=== PATIENT | male | born 1960 | race Caucasian/White ===

== ENCOUNTER → 2017-01-10 | Outpatient (CLI) | payer BC ==
--- NOTE | 2017-01-10 11:21 | CR ---
EXAMINATION: Pelvis and right hip HISTORY: Pain COMPARISON: None TECHNIQUE: AP pelvis and 2 views of the right hip FINDINGS: There is severe joint space narrowing within the right hip with subchondral cystic change. Osteophytes are noted along the joint margin. No fracture or acute osseous abnormality demonstrated . Joint spaces within the left hip are grossly preserved. SI joints are symmetric. The iliopectineal lines are intact. IMPRESSION: Moderate to severe degenerative changes noted within the right hip without acute finding s.
== END ==
LOC: MW.CHORTHO 07:43
PROVIDERS: ATTEND Orthopaedic Surgery
DX: M25.551 Pain in right hip (principal)
CPT/HCPCS: 73502-26-RT; 73502-RT

== ENCOUNTER 2017-06-03 16:08 | Emergency (ER) | payer BC ==
[2017-06-03] MEDS ORDERED: HYDROmorphone 1 MG/ML Syringe IV ONE (16:48)
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
[2017-06-03 18:38] VITALS: BP 120/71
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
== END 2017-06-03 18:38 | disposition home or self-care (01) ==
LOC: MW.ED 16:08
DX: M79.661 Pain in right lower leg (principal); M79.671 Pain in right foot; K21.9 Gastro-esophageal reflux disease without esophagitis; F17.210 Nicotine dependence, cigarettes, uncomplicated; Z88.0 Allergy status to penicillin; Z79.82 Long term (current) use of aspirin; Z79.84 Long term (current) use of oral hypoglycemic drugs; Z98.890 Other specified postprocedural states; W22.8XXA Striking against or struck by other objects, initial encounter
CPT/HCPCS: 73562; 73590; 73610; 73620; 96374; 99284; J1170; 99283

== ENCOUNTER 2018-02-28 08:37 | Inpatient (IN) | payer OTHER ==
[~2018-02-28 08:37] MED LIST: Dermabond Prineo 1 Tube TOP ONE; Midazolam 1 MG/ML 2 ML SDV ONE; Propofol 200 MG/20 ML SDV ONE; fentaNYL 100 MCG/2 ML SDV ONE
[2018-02-28] MEDS ORDERED: Clindamycin Phosphate in D5W 900 MG in Premix Bag 1 BAG IV SCH ×2 (10:00)
[2018-02-28] MEDS: Lactated Ringers 1,000 ML IV SCH ×2 (10:05→16:16)
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
[2018-02-28] MEDS ORDERED: Phenylephrine 1% 10 MG/ML SDV ONE (12:45)
[2018-02-28] MEDS ORDERED: fentaNYL 100 MCG/2 ML SDV IVPUSH PRN (12:53)
--- NOTE | 2018-02-28 13:12 | PCM.OPNOTE ---
- General Post-Op/Procedure Note Date of Surgery/Procedure: 02/28/18 Operative Procedure(s): right anterior total hip arthroplasty Findings: osteoarthritis Pre Op Diagnosis: right hip osteoarthritis Post-Op Diagnosis: same Anesthesia Technique: Moderate Sedation, Spinal Primary Surgeon: Travis Durand [employer]: Kika Chaudhary Pathology: femoral head EBL in mLs: 400 Complications: none Condition: Good
[2018-02-28] MEDS ORDERED: diphenhydrAMINE 25 MG Cap PO PRN (13:15)
[2018-02-28] MEDS ORDERED: Aluminum Hydroxide/Magnesium Hydroxide/Simethicone Susp 30 ML Cup PO PRN (13:15)
[2018-02-28] MEDS ORDERED: Ondansetron 4 MG/2 ML SDV IV PRN (13:15)
[2018-02-28] MEDS ORDERED: Bisacodyl 10 MG Supp RECTAL PRN (13:15)
--- NOTE | 2018-02-28 13:41 | PCM.POSTAN ---
POST ANESTHESIA ASSESSMENT - MENTAL STATUS Mental Status: Alert, Oriented - RESPIRATORY Respiratory Status: Respiratory Rate WNL, Airway Patent, O2 Saturation Stable - CARDIOVASCULAR CV Status: Pulse Rate WNL, Blood Pressure Stable - GASTROINTESTINAL GI Status: No Symptoms - POST OP HYDRATION Hydration Status: Adequate & Stable
--- NOTE | 2018-02-28 14:50 | OR ---
SURGEON: Travis Mosher MD DATE OF PROCEDURE: 02/28/2018 CALENDER WIND UP TENDER: Kika Chaudhary PA-C. PREOPERATIVE DIAGNOSIS: Right hip osteoarthritis. POSTOPERATIVE DIAGNOSIS: Right hip osteoarthritis. OPERATION PERFORMED: Right anterior total hip arthroplasty. ANESTHESIA: Spinal with sedation. COMPLICATION: None. ESTIMATED BLOOD LOSS: 4 mL. SPECIMENS: Femoral head. IMPLANTS: Yary Continuum trabecular metal shell with cluster holes, 54 mm outer diameter; one 6.5 x 25 mm length bone screw; Vivacit-E neutral liner 36 mm inner diameter; Fitmore hip stem uncemented; B extended offset, size 1; Biolox delta ceramic femoral head 36 mm diameter; -3.5 neck length. INDICATIONS: The patient is a 57-year-old male with severe arthritis, failed conservative management, modification therapy, injections, chronic pain on a daily basis hindering all activities. He wished undergo above procedure. He understands the risks, benefits, and complications of procedure including, but not limited to, infection, neurovascular injury, continued pain, DVT, PE, stroke, RI, , leg-length discrepancy, fracture dislocation. He wished to proceed. OPERATION IN DETAIL: The patient was seen in preoperative area. Operative site was marked. The patient was transferred to the operating room. Spinal anesthetic was given. He was placed supine on the Olivera table. We started on the Olivera table and sedation was given. His legs were placed in leg bars on the lOivera table with narrow perineal post. Right hip was prepped and draped in a sterile fashion using alcohol followed by ChloraPrep with Ioban covering. He received preoperative antibiotics, clindamycin, and also 2 g of TXA. Formal time-out was taken identifying the correct procedure and extremity. A 10 cm incision starting just lateral to the ASIS going obliquely down femur was made. Dissection was carried down to subcutaneous tissues. The fascia overlying the TFL lateral to the lateral femoral cutaneous nerve was opened. The interval between sartorius and TFL, deep between the abductors and rectus were opened. The anterior vessels were coagulated. The vastus lateralis fascia was opened. A deep Jass tractor was placed. Capsule was held and tagged with two sutures, and the deep retractors were placed. The neck was kept in saddle region, 1 cm above the lesser trochanter and the head was removed. He had severe arthritis. Remnants of the labrum and pulvinar were removed. The inferior capsule was released with the iliopsoas tendon was preserved. The head measured about 48 to 49 mm and sequential reaming from 47 up to 53 mm was made. This had excellent fit and fill going slightly superior medial that was planned to make sure it was leveled, and then a continuum trabecular metal shell with cluster holes was impacted 54 mm and with a screw hole straight superiorly in 40 degrees of abduction and 10 to 15 degrees of anteversion. Once straight superior bone screw was placed after drilling. The neutral liner was impacted in place. The leg was then externally rotated, abducted, and extended. The medial capsule and calcar were released. The superior capsule obturator internus and piriformis were released. Central canal finder was utilized, and hip was broached to starter rasp up to size 1B based on preoperative templating. We would not go down at all. Therefore, a flexible reamer set was opened and it was reamed up to 12 mm in the proximal aspect and then was approached, but between the starter rasp size 1 and 2. I was able to sink the size [address] down to the neck cut, but it was very tight. It was trial reduced with extended offset with zero neck length, which showed the hip to be about 4 mm longer than the opposite side, but the stem fit well. The offset was equal. Hip was then dislocated and the final B1 extended offset stem was impacted. A 36 ceramic head was impacted, and the hip was reduced. Printed overlay technique showed leg lengths to be lengthened to a couple of mm. However, this was a small stem, but also to be equal. There was stable range of motion. Two tag sutures were tied together. Wound was irrigated. The fascia was closed with #1 Vicryl, subcutaneous tissues with 2-0 Stratafix, skin with 4-0 Monocryl. Dermabond tape and Aquacel dressing were placed. He was transferred to recovery room in stable condition. Sponge and needle counts were correct at the end of case. He was given aspirin for DVT prophylaxis. CHRISTIANA / RAKESH /[id number]
[2018-02-28 15:16] LABS: CHLORIDE,CL 105 mmol/L (98-107); SODIUM,NA 141 mmol/L (136-148)
--- NOTE | 2018-02-28 15:52 | PCM.CONS ---
H&P History of Present Illness - General Date of Service: 02/28/18 Admit Problem/Dx: Admission Diagnosis/Problem Admission Diagnosis/Problem Hip replacement planned Source of Information: Patient, Old Records History Limitations: Reports: No Limitations - History of Present Illness Initial Comments - Free Text/Narative: This 57 year old male with pmh CAD, NV in 2014 with stenting to his R coronary artery, DM type 2, tobacco abuse, DVT and PE hx. Presented today with Dr Mosher for R ANISHA. He is feeling well post-operatively. Pre-operatively he was doing well, with no chest pain or dyspnea. No concerns. He continues to smoke 1- ppd, and denies wanting help quitting. Reviewed all notes from PCP, Dr Cabello and cardiology Dr Montanez. He is currently only taking ASA daily for CAD, no statin, which he declines to take. He also takes Losartan/HCTZ, which he reports he only takes a half a tab of this daily otherwise his BPs are too low, SBP 90s. - Related Data Allergies/Adverse Reactions: Allergies Allergy/AdvReac Type Severity Reaction Status Date / Time Penicillins Allergy Rash Verified 02/23/18 12:16 Home Medications: Home Meds Aspirin [Ecotrin] 3 tab PO DAILY 04/30/15 [History] Losartan/Hydrochlorothiazide [Hyzaar 100-25 Tablet] 0.5 tab PO DAILY 11/17/17 [ History] Celecoxib [CeleBREX] 200 mg PO BID 02/23/18 [History] Omeprazole Magnesium [Prilosec Otc] 20 mg PO DAILY 02/23/18 [History] metFORMIN HCl [Metformin HCl] 2 tab PO BID 02/23/18 [History] Past Medical History - Past Health History Medical/Surgical History: Denies Medical/Surgical History HEENT History: Reports: None Cardiovascular History: Reports: Blood Clots/VTE/DVT, CAD, Hypertension, NV, Stents. Denies: Afib Other Cardiovascular History: NV in 2014, denies current chest pain ,SOB, leg swelling- hx of 2 PE in 2009 , took anticoagulants for 6 months, DVT after long flight to [place] Respiratory History: Reports: COPD, PE Gastrointestinal History: Reports: GERD Other Gastrointestinal History: takes OTC prilosec Genitourinary History: Reports: None. Denies: Chronic Renal Insuffiency Musculoskeletal History: Reports: Arthritis, Fracture, Osteoarthritis Other Musculoskeletal History: hx of leona fx arms and legs Neurological History: Reports: Concussion. Denies: CVA, TIA Psychiatric History: Reports: PTSD Endocrine/Metabolic History: Reports: Diabetes, Type II, Obesity/BMI 30+ - Past Surgical History Head Surgeries/Procedures: Reports: None HEENT Surgical History: Reports: Tonsillectomy Cardiovascular Surgical History: Reports: Coronary Artery Stent GI Surgical History: Reports: Hernia, Abdominal, Hernia, Inguinal Male Surgical History: Reports: None Musculoskeletal Surgical History: Reports: Arthroscopic Knee, Carpal Tunnel Other Musculoskeletal Surgeries/Procedures:: hx of left CTR, right ACL (has screws) Social & Family History - Family History Family Medical History: Noncontributory Respiratory: Reports: Other (See Below) Other Respiratory Family Hisory: Black Lung-[place] Endocrine/Metabolic: Reports: Diabetes, type II (mother) - Tobacco Use Smoking Status *Q: Current Every Day Smoker Years of Tobacco use: 42 Packs/Tins Daily: 1 - Alcohol Use Days Per Week of Alcohol Use: 1 Number of Drinks Per Day: 1 Total Drinks Per Week: 1 - Recreational Drug Use Recreational Drug Use: No Drug Use in Last 12 Months: No - Living Situation & Occupation Living situation: Reports: Occupation: Employed H&P Review of Systems - Review of Systems: Review Of Systems: See Below General: Reports: No Symptoms. Denies: Fever, Chills, Malaise, Weakness HEENT: Reports: No Symptoms. Denies: Hearing Changes, Sinus Congestion, Sore Throat Pulmonary: Reports: No Symptoms. Denies: Shortness of Breath, Wheezing, Pleuritic Chest Pain, Cough, Sputum Cardiovascular: Reports: No Symptoms. Denies: Chest Pain, Edema Gastrointestinal: Reports: No Symptoms. Denies: Abdominal Pain, Black Stool, Bloody Stool, Decreased Appetite, Distension, Nausea, Vomiting Genitourinary: Reports: No Symptoms. Denies: Dysuria, Frequency, Burning, Pain Musculoskeletal: Reports: No Symptoms. Denies: Neck Pain Skin: Reports: No Symptoms Psychiatric: Reports: No Symptoms Neurological: Reports: No Symptoms Hematologic/Lymphatic: Reports: No Symptoms Immunologic: Reports: No Symptoms Exam - Exam Exam: See Below - Vital Signs Vital Signs: Last Vital Signs Temp 96.4 F 02/28/18 15:10 Pulse 79 02/28/18 15:10 Resp 18 02/28/18 15:10 BP 125/69 02/28/18 15:10 Pulse Ox 97 02/28/18 15:10 Weight: 118.388 kg - Exam General: Alert, Oriented, Cooperative HEENT: Conjunctiva Clear, Normal Nasal Septum, Posterior Pharynx Clear, Pupils Reactive Neck: Supple, Trachea Midline, 2 Lungs: Clear to Auscultation, Normal Respiratory Effort Cardiovascular: Regular Rate, Regular Rhythm GI/Abdominal Exam: Normal Bowel Sounds, Soft, Non-Tender, No Organomegaly, No Distention, No Abnormal Bruit, No Mass, Pelvis Stable Extremities: Normal Inspection, Normal Range of Motion, Non-Tender, No Pedal Edema, Normal Capillary Refill Skin: Incision (R hip, C/D/I) Neuro Extensive - Mental Status: Alert, Oriented x3 Neuro Extensive - Motor, Sensory, Reflexes: CN II-XII Intact Psychiatric: Alert, Normal Affect, Normal Mood - Patient Data Lab Results Last 24 hrs: Laboratory Results - last 24 hr 02/28/18 02/28/18 02/28/18 Range/Units 09:47 10:21 14:53 WBC 12.24 H (4.0-11.0) K/uL RBC 5.13 (4.50-5.90) M/uL Hgb 15.4 (13.0-17.0) g/dL Hct 44.9 (38.0-50.0) % MCV 87.5 (80.0-98.0) fL MCH 30.0 (27.0-32.0) pg MCHC 34.3 (31.0-37.0) g/dL RDW Std Deviation 42.2 (28.0-62.0) fl RDW Coeff of Lance 13 (11.0-15.0) % Plt Count 137 L (150-400) K/uL MPV 10.70 (7.40-12.00) fL Neut % (Auto) 73.8 (48.0-80.0) % Lymph % (Auto) 21.1 (16.0-40.0) % [place] % (Auto) 3.8 (0.0-15.0) % Eos % (Auto) 1.1 (0.0-7.0) % Baso % (Auto) 0.2 (0.0-1.5) % Neut # (Auto) 9.0 H (1.4-5.7) K/uL Lymph # (Auto) 2.6 H (0.6-2.4) K/uL [place] # (Auto) 0.5 (0.0-0.8) K/uL Eos # (Auto) 0.1 (0.0-0.7) K/uL Baso # (Auto) 0.0 (0.0-0.1) K/uL Nucleated RBC % 0.0 /100WBC Nucleated RBCs # 0 K/uL Sodium (136-148) mmol/L Potassium (3.5-5.1) mmol/L Chloride (98-107) mmol/L Carbon Dioxide (21.0-32.0) mmol/L BUN (7.0-18.0) mg/dL Creatinine (0.8-1.3) mg/dL Est Cr Clr Drug Dosing mL/min Estimated GFR (MDRD) ml/min Glucose (74-106) mg/dL POC Glucose 122 H (60-110) mg/dL Calcium (8.5-10.1) mg/dL Blood Type O POSITIVE Antibody Screen NEGATIVE 02/28/18 Range/Units 14:53 WBC (4.0-11.0) K/uL RBC (4.50-5.90) M/uL Hgb (13.0-17.0) g/dL Hct (38.0-50.0) % MCV (80.0-98.0) fL MCH (27.0-32.0) pg MCHC (31.0-37.0) g/dL RDW Std Deviation (28.0-62.0) fl RDW Coeff of Lance (11.0-15.0) % Plt Count (150-400) K/uL MPV (7.40-12.00) fL Neut % (Auto) (48.0-80.0) % Lymph % (Auto) (16.0-40.0) % [place] % (Auto) (0.0-15.0) % Eos % (Auto) (0.0-7.0) % Baso % (Auto) (0.0-1.5) % Neut # (Auto) (1.4-5.7) K/uL Lymph # (Auto) (0.6-2.4) K/uL [place] # (Auto) (0.0-0.8) K/uL Eos # (Auto) (0.0-0.7) K/uL Baso # (Auto) (0.0-0.1) K/uL Nucleated RBC % /100WBC Nucleated RBCs # K/uL Sodium 141 (136-148) mmol/L Potassium 4.5 (3.5-5.1) mmol/L Chloride 105 (98-107) mmol/L Carbon Dioxide 29.2 (21.0-32.0) mmol/L BUN 16 (7.0-18.0) mg/dL Creatinine 0.8 (0.8-1.3) mg/dL Est Cr Clr Drug Dosing 96.40 mL/min Estimated GFR (MDRD) > 60.0 ml/min Glucose 126 H (74-106) mg/dL POC Glucose (60-110) mg/dL Calcium 8.8 (8.5-10.1) mg/dL Blood Type Antibody Screen Result Diagrams: 02/28/18 14:53 02/28/18 14:53 Consult PN Assessment/Plan Procedures: Procedures ASSAY OF CK (CPK) (12/10/15) ASSAY OF MAGNESIUM (10/17/15) ASSAY OF NATRIURETIC PEPTIDE (12/10/15) ASSAY OF TROPONIN QUANT (12/10/15) CHEST X-RAY 1 VIEW FRONTAL (12/10/15) CHEST X-RAY 2VW FRONTAL&LATL (04/30/15) CO/MEMBANE DIFFUSE CAPACITY (12/21/15) COMPLETE CBC AUTOMATED (12/10/15) COMPLETE CBC W/AUTO DIFF WBC (12/10/15) COMPREHEN METABOLIC PANEL (12/10/15) CREATINE MB FRACTION (12/10/15) DRAIN/INJ JOINT/BURSA W/O US (09/21/17) ELECTROCARDIOGRAM TRACING (12/10/15) EMERGENCY DEPT VISIT (06/03/17) EMERGENCY DEPT VISIT (12/10/15) EMERGENCY DEPT VISIT (04/30/15) EVALUATION OF WHEEZING (12/21/15) EXTREMITY STUDY (06/09/15) FIBRIN DEGRADATION QUANT (04/30/15) GLUCOSE BLOOD TEST (12/10/15) GLYCOSYLATED HEMOGLOBIN TEST (01/16/18) HYDRATE IV INFUSION ADD-ON (10/17/15) NEEDLE LOCALIZATION BY XRAY (09/21/17) PROTHROMBIN TIME (10/17/15) PULM FUNCTION TEST BY GAS (12/21/15) ROUTINE VENIPUNCTURE (01/16/18) THER/PROPH/DIAG INJ IV PUSH (06/03/17) THER/PROPH/DIAG INJ SC/IM (04/30/15) THER/PROPH/DIAG IV INF INIT (10/17/15) TX/PRO/DX INJ NEW DRUG ADDON (10/17/15) URINALYSIS AUTO W/SCOPE (12/10/15) X-RAY EXAM HIP UNI 2-3 VIEWS (01/10/17) X-RAY EXAM OF ANKLE (06/03/17) X-RAY EXAM OF FOOT (06/03/17) X-RAY EXAM OF KNEE 3 (06/03/17) X-RAY EXAM OF LOWER LEG (06/03/17) (1) HTN (hypertension) SNOMED Code(s): 23333243 Code(s): I10 - ESSENTIAL (PRIMARY) HYPERTENSION Current Visit: Yes Qualifiers: Hypertension type: essential hypertension Qualified Code(s): I10 - Essential (primary) hypertension (2) COPD (chronic obstructive pulmonary disease) SNOMED Code(s): 64391503 Code(s): J44.9 - CHRONIC OBSTRUCTIVE PULMONARY DISEASE, UNSPECIFIED Current Visit: Yes Qualifiers: COPD type: unspecified COPD Qualified Code(s): J44.9 - Chronic obstructive pulmonary disease, unspecified (3) Hx of deep venous thrombosis SNOMED Code(s): 550929761 Code(s): Z86.718 - PERSONAL HISTORY OF OTHER VENOUS THROMBOSIS AND EMBOLISM Current Visit: Yes (4) Hx pulmonary embolism SNOMED Code(s): 457806600 Code(s): Z86.711 - PERSONAL HISTORY OF PULMONARY EMBOLISM Current Visit: Yes (5) CAD (coronary artery disease) SNOMED Code(s): 95413443 Code(s): I25.10 - ATHSCL HEART DISEASE OF [place] CORONARY ARTERY W/O ANG PCTRS Current Visit: No Qualifiers: Coronary Disease-Associated Artery/Lesion type: [place] artery [place] vs. transplanted heart: [place] heart Associated angina: without angina Qualified Code(s): I25.10 - Atherosclerotic heart disease of [place] coronary artery without angina pectoris (6) GERD (gastroesophageal reflux disease) SNOMED Code(s): 101081450 Code(s): K21.9 - GASTRO-ESOPHAGEAL REFLUX DISEASE WITHOUT ESOPHAGITIS Current Visit: No Qualifiers: Esophagitis presence: without esophagitis Qualified Code(s): K21.9 - Gastro -esophageal reflux disease without esophagitis (7) Type 2 diabetes mellitus SNOMED Code(s): 55193378 Code(s): E11.9 - TYPE 2 DIABETES MELLITUS WITHOUT COMPLICATIONS Current Visit: No Qualifiers: Diabetes mellitus alf insulin use: without alf use Problem List Initiated/Reviewed/Updated: Yes My Orders Last 24 Hours: My Active Orders 02/28/18 17:00 Insulin Aspart [NovoLOG] See Protocol SUBCUT TIDAC Plan: This 57 year old male admitted with Dr. Mosher for R anterior ANISHA. Hospitalist service consulted for medical management. 1. S/P R anterior ANISHA: Per Ortho 2. CAD: Stable, continue ASA. Patient should be on a statin, but patient declines this. 3. HTN: Stable, continue Losartan/HCTZ. 4. DM type 2: Stable, recent A1c 7.2. Will hold Metformin, but restart upon discharge. Novolog SSI as needed per protocol. Patient reports he may refuse this. He was educated on the need for this and will "see" if/when he needs the insulin. VTE prophylaxis: I would recommended especially with patient's history of PE and DVTs to L leg. Patient adamantly refuses any anticoagulation. Orthopedics has ordered ASA 325 BID.
[2018-02-28] MEDS: Acetaminophen/HYDROcodone 325-5 MG Tab PO PRN ×2 (16:15→19:48)
--- NOTE | 2018-02-28 16:23 | CR ---
EXAMINATION: Right hip HISTORY: Arthroplasty COMPARISON: 09/21/2017 TECHNIQUE: 3 fluoroscopic images provided. FINDINGS/IMPRESSION: Operative control films demonstrate placement of right total hip hardware in goo d position and alignment. Comparative left hip appears normal.
[2018-02-28] MEDS ORDERED: metFORMIN 500 MG Tab PO SCH (17:00)
[2018-02-28] MEDS: Insulin Aspart 100 Units/ML 3 ML Pen SUBCUT SCH (17:10)
[2018-02-28] MEDS: Nicotine 7 MG/24 Hr Patch TRDERM SCH (17:37)
[2018-02-28] MEDS: Morphine 4 MG/ML Syringe IVPUSH PRN ×2 (17:45→21:01)
[2018-02-28] MEDS: Clindamycin Phosphate in D5W 900 MG in Premix Bag 1 BAG IV SCH ×2 (18:34)
[2018-02-28] MEDS: Docusate Sodium 100 MG Cap PO SCH (21:05)
[2018-03-01] MEDS: Acetaminophen/HYDROcodone 325-5 MG Tab PO PRN ×3 (00:33→13:16)
[2018-03-01] MEDS: Clindamycin Phosphate in D5W 900 MG in Premix Bag 1 BAG IV SCH ×2 (02:43)
[2018-03-01] MEDS: Morphine 4 MG/ML Syringe IVPUSH PRN (02:52)
[2018-03-01 05:53] LABS: CHLORIDE,CL 103 mmol/L (98-107); SODIUM,NA 138 mmol/L (136-148)
[2018-03-01] MEDS ORDERED: Sodium Chloride 0.9% 10 ML Syringe FLUSH PRN (07:18)
[2018-03-01] MEDS ORDERED: Sodium Chloride 0.9% 2.5 ML Syringe FLUSH PRN (07:18)
--- NOTE | 2018-03-01 07:18 | PCM.SN ---
- Free Text/Narrative Note: S: doing well, pain is better today. is ambulating with walker. no cp/sob. tolerating PO O: afebrile, vital signs stable right hip - dressing clean/dry/intact with no erythema or drainage no swelling in thigh or distally, normal sensation/motor/pulses distally hgb 13.1 A/P: POD #1 right ANISHA - full weight bearing, PT, walker - SCDs and ecotrin for DVT prophylaxis - likely home later today, f/u in 2 weeks
[2018-03-01] MEDS ORDERED: Omeprazole 20 MG Cap.CR PO SCH (07:30)
--- NOTE | 2018-03-01 07:43 | PCM48HPAN ---
Post Anesthesia Note - EVALUATION WITHIN 48HRS OF ANESTHETIC Vital Signs in Normal Range: Yes Patient Participated in Evaluation: Yes Respiratory Function Stable: Yes Airway Patent: Yes Cardiovascular Function Stable: Yes Hydration Status Stable: Yes Pain Control Satisfactory: No Nausea and Vomiting Control Satisfactory: Yes Mental Status Recovered: Yes Resp Rate: 20 - COMMENTS/OBSERVATIONS Free Text/Narrative:: States he is having pain currently as he is sitting up in chair at side of bed eating breakfast and that he is waiting until he finishes breakfast to get pain medication.
[2018-03-01] MEDS: Insulin Aspart 100 Units/ML 3 ML Pen SUBCUT SCH ×2 (07:48→13:13)
[2018-03-01] MEDS ORDERED: Hydrochlorothiazide/Losartan 12.5-50 mg Tab PO SCH (09:00)
[2018-03-01] MEDS ORDERED: Aspirin 325 MG Tab.EC PO SCH (09:00)
[2018-03-01] MEDS: Docusate Sodium 100 MG Cap PO SCH (09:07)
[2018-03-01] MEDS: Nicotine 7 MG/24 Hr Patch TRDERM SCH (09:11)
--- NOTE | 2018-03-01 10:06 | PCM.CONSN ---
- General Info Date of Service: 03/01/18 Admission Dx/Problem (Free Text): Admission Diagnosis/Problem Admission Diagnosis/Problem Hip replacement planned Subjective Update: Doing ok this morning, No chest pain or SOB. Having R hip pain today. No other concerns. Functional Status: Reports: Pain Controlled, Tolerating Diet, Ambulating, Urinating - Review of Systems HEENT: Reports: No Symptoms. Denies: Headaches, Sore Throat, Visual Changes Pulmonary: Reports: No Symptoms. Denies: Shortness of Breath, Cough, Sputum Cardiovascular: Reports: No Symptoms. Denies: Chest Pain, Edema Gastrointestinal: Reports: No Symptoms. Denies: Abdominal Pain, Nausea, Vomiting Genitourinary: Reports: No Symptoms. Denies: Dysuria, Frequency, Burning, Pain Musculoskeletal: Reports: Joint Pain (R hip) Skin: Reports: No Symptoms Neurological: Reports: No Symptoms Psychiatric: Reports: No Symptoms - Patient Data Vitals - Most Recent: Last Vital Signs Temp 96.3 F 03/01/18 07:49 Pulse 84 03/01/18 07:49 Resp 22 H 03/01/18 07:49 BP 118/64 03/01/18 07:49 Pulse Ox 92 L 03/01/18 07:49 Weight - Most Recent: 118.388 kg I&O - Last 24 Hours: Intake & Output 02/28/18 03/01/18 03/01/18 22:59 06:59 14:59 Intake Total 1000 1523 1040 Output Total 500 2040 396 Balance 500 -517 644 Lab Results Last 24 Hours: Laboratory Results - last 24 hr 02/28/18 02/28/18 02/28/18 Range/Units 10:21 14:53 14:53 WBC 12.24 H (4.0-11.0) K/uL RBC 5.13 (4.50-5.90) M/uL Hgb 15.4 (13.0-17.0) g/dL Hct 44.9 (38.0-50.0) % MCV 87.5 (80.0-98.0) fL MCH 30.0 (27.0-32.0) pg MCHC 34.3 (31.0-37.0) g/dL RDW Std Deviation 42.2 (28.0-62.0) fl RDW Coeff of Lance 13 (11.0-15.0) % Plt Count 137 L (150-400) K/uL MPV 10.70 (7.40-12.00) fL Neut % (Auto) 73.8 (48.0-80.0) % Lymph % (Auto) 21.1 (16.0-40.0) % [place] % (Auto) 3.8 (0.0-15.0) % Eos % (Auto) 1.1 (0.0-7.0) % Baso % (Auto) 0.2 (0.0-1.5) % Neut # (Auto) 9.0 H (1.4-5.7) K/uL Lymph # (Auto) 2.6 H (0.6-2.4) K/uL [place] # (Auto) 0.5 (0.0-0.8) K/uL Eos # (Auto) 0.1 (0.0-0.7) K/uL Baso # (Auto) 0.0 (0.0-0.1) K/uL Nucleated RBC % 0.0 /100WBC Nucleated RBCs # 0 K/uL Sodium 141 (136-148) mmol/L Potassium 4.5 (3.5-5.1) mmol/L Chloride 105 (98-107) mmol/L Carbon Dioxide 29.2 (21.0-32.0) mmol/L BUN 16 (7.0-18.0) mg/dL Creatinine 0.8 (0.8-1.3) mg/dL Est Cr Clr Drug Dosing 96.40 mL/min Estimated GFR (MDRD) > 60.0 ml/min Glucose 126 H (74-106) mg/dL POC Glucose (60-110) mg/dL Calcium 8.8 (8.5-10.1) mg/dL Blood Type O POSITIVE Antibody Screen NEGATIVE 02/28/18 03/01/18 03/01/18 Range/Units 16:52 04:54 04:54 WBC 8.44 (4.0-11.0) K/uL RBC 4.62 (4.50-5.90) M/uL Hgb 13.6 (13.0-17.0) g/dL Hct 39.9 (38.0-50.0) % MCV 86.4 (80.0-98.0) fL MCH 29.4 (27.0-32.0) pg MCHC 34.1 (31.0-37.0) g/dL RDW Std Deviation 41.0 (28.0-62.0) fl RDW Coeff of Lance 13 (11.0-15.0) % Plt Count 136 L (150-400) K/uL MPV 11.30 (7.40-12.00) fL Neut % (Auto) 62.0 (48.0-80.0) % Lymph % (Auto) 30.6 (16.0-40.0) % [place] % (Auto) 6.6 (0.0-15.0) % Eos % (Auto) 0.6 (0.0-7.0) % Baso % (Auto) 0.2 (0.0-1.5) % Neut # (Auto) 5.2 (1.4-5.7) K/uL Lymph # (Auto) 2.6 H (0.6-2.4) K/uL [place] # (Auto) 0.6 (0.0-0.8) K/uL Eos # (Auto) 0.1 (0.0-0.7) K/uL Baso # (Auto) 0.0 (0.0-0.1) K/uL Nucleated RBC % 0.0 /100WBC Nucleated RBCs # 0 K/uL Sodium 138 (136-148) mmol/L Potassium 3.9 (3.5-5.1) mmol/L Chloride 103 (98-107) mmol/L Carbon Dioxide 28.2 (21.0-32.0) mmol/L BUN 11 (7.0-18.0) mg/dL Creatinine 0.8 (0.8-1.3) mg/dL Est Cr Clr Drug Dosing 96.40 mL/min Estimated GFR (MDRD) > 60.0 ml/min Glucose 131 H (74-106) mg/dL POC Glucose 138 H (60-110) mg/dL Calcium 8.3 L (8.5-10.1) mg/dL Blood Type Antibody Screen 03/01/18 Range/Units 06:13 WBC (4.0-11.0) K/uL RBC (4.50-5.90) M/uL Hgb (13.0-17.0) g/dL Hct (38.0-50.0) % MCV (80.0-98.0) fL MCH (27.0-32.0) pg MCHC (31.0-37.0) g/dL RDW Std Deviation (28.0-62.0) fl RDW Coeff of Lance (11.0-15.0) % Plt Count (150-400) K/uL MPV (7.40-12.00) fL Neut % (Auto) (48.0-80.0) % Lymph % (Auto) (16.0-40.0) % [place] % (Auto) (0.0-15.0) % Eos % (Auto) (0.0-7.0) % Baso % (Auto) (0.0-1.5) % Neut # (Auto) (1.4-5.7) K/uL Lymph # (Auto) (0.6-2.4) K/uL [place] # (Auto) (0.0-0.8) K/uL Eos # (Auto) (0.0-0.7) K/uL Baso # (Auto) (0.0-0.1) K/uL Nucleated RBC % /100WBC Nucleated RBCs # K/uL Sodium (136-148) mmol/L Potassium (3.5-5.1) mmol/L Chloride (98-107) mmol/L Carbon Dioxide (21.0-32.0) mmol/L BUN (7.0-18.0) mg/dL Creatinine (0.8-1.3) mg/dL Est Cr Clr Drug Dosing mL/min Estimated GFR (MDRD) ml/min Glucose (74-106) mg/dL POC Glucose 118 H (60-110) mg/dL Calcium (8.5-10.1) mg/dL Blood Type Antibody Screen Med Orders - Current: Current Medications Hydrocodone Bitart/Acetaminophen ([place] 325-5 Mg) 1 - 2 tab PO Q4H PRN PRN Reason: Pain Last Admin: 03/01/18 07:41 Dose: 2 tab Al Hydroxide/Mg Hydroxide (Mag-Al Plus) 30 ml PO Q4H PRN PRN Reason: indigestion Aspirin (Ecotrin) 325 mg PO BID [facility] Last Admin: 03/01/18 09:07 Dose: 325 mg Bisacodyl (Dulcolax) 10 mg RECTAL DAILY PRN PRN Reason: Constipation Diphenhydramine HCl (Benadryl) 25 - 50 mg PO Q6H PRN PRN Reason: Itching Docusate Sodium (Colace) 100 mg PO BID [facility] Last Admin: 03/01/18 09:07 Dose: 100 mg HCTZ/Losartan Potassium (Hyzaar 50-12.5 Mg) 0.5 tab PO DAILY [facility] Last Admin: 03/01/18 09:08 Dose: 0.5 tab Clindamycin Phosphate 900 mg/ (Premix) 50 mls @ 100 mls/hr IV ONETIME [facility] Last Admin: 02/28/18 10:05 Dose: 100 mls/hr Lactated Ringer's (Ringers, Lactated) 1,000 mls @ 125 mls/hr IV ASDIRECTED [facility] Last Admin: 02/28/18 16:16 Dose: 125 mls/hr Insulin Aspart (Novolog) 0 unit SUBCUT TIDAC [facility]; Protocol Last Admin: 03/01/18 07:48 Dose: Not Given Morphine Sulfate (Morphine) 1 - 3 mg IVPUSH Q3H PRN PRN Reason: Pain Last Admin: 03/01/18 02:52 Dose: 3 mg Nicotine (Habitrol) 7 mg TRDERM DAILY [facility] Last Admin: 03/01/18 09:11 Dose: Not Given Omeprazole (Omeprazole) 20 mg PO ACBREAKFAST [facility] Last Admin: 03/01/18 06:52 Dose: 20 mg Ondansetron HCl (Zofran) 4 mg IV Q6HR PRN PRN Reason: NAUSEA/VOMITING Sodium Chloride (Saline Flush) 10 ml FLUSH ASDIRECTED PRN PRN Reason: Keep Vein Open Sodium Chloride (Saline Flush) 2.5 ml FLUSH ASDIRECTED PRN PRN Reason: Keep Vein Open Discontinued Medications Fentanyl (Sublimaze) Confirm Administered Dose 100 mcg .ROUTE .STK-MED ONE Stop: 02/28/18 07:20 Fentanyl (Sublimaze) 50 mcg IVPUSH Q5M PRN PRN Reason: Pain (moderate 4-6) Stop: 02/28/18 15:00 Clindamycin Phosphate 900 mg/ (Premix) 50 mls @ 100 mls/hr IV Q8H [facility] Stop: 03/01/18 03:59 Last Admin: 03/01/18 02:43 Dose: 100 mls/hr Metformin HCl (Glucophage) 500 mg PO BIDMEALS [facility] Midazolam HCl (Versed 1 Mg/Ml) Confirm Administered Dose 2 mg .ROUTE .STK-MED ONE Stop: 02/28/18 07:20 Midazolam HCl (Versed 1 Mg/Ml) Confirm Administered Dose 2 mg .ROUTE .STK-MED ONE Stop: 02/28/18 07:21 Octyl Cyanoacrylate (Dermabond Prineo) 1 applic TOP .STK-MED ONE Stop: 02/28/18 07:35 Phenylephrine HCl (Kurt-Synephrine) Confirm Administered Dose 10 mg .ROUTE .STK- MED ONE Stop: 02/28/18 12:46 Propofol (Diprivan 20 Ml) Confirm Administered Dose 600 mg .ROUTE .STK-MED ONE Stop: 02/28/18 07:20 Tranexamic Acid (Cyklokapron) 2,000 mg IV ONETIME ONE Stop: 02/28/18 10:01 Last Admin: 02/28/18 14:08 Dose: Not Given Tranexamic Acid (Cyklokapron) Confirm Administered Dose 2,000 mg .ROUTE .STK- MED ONE Stop: 02/28/18 07:18 - Exam General: Alert, Oriented, Cooperative, No Acute Distress Neck: Supple Lungs: Clear to Auscultation, Normal Respiratory Effort Cardiovascular: Regular Rate, Regular Rhythm GI/Abdominal Exam: Normal Bowel Sounds, Soft, Non-Tender, No Organomegaly, No Distention, No Abnormal Bruit, No Mass, Pelvis Stable Back Exam: Normal Inspection, Full Range of Motion Extremities: Normal Inspection, Normal Range of Motion, Non-Tender, No Pedal Edema, Normal Capillary Refill Neurological: No New Focal Deficit Psy/Mental Status: Alert, Normal Affect, Normal Mood Consult PN Assessment/Plan Procedures: Procedures ASSAY OF CK (CPK) (12/10/15) ASSAY OF MAGNESIUM (10/17/15) ASSAY OF NATRIURETIC PEPTIDE (12/10/15) ASSAY OF TROPONIN QUANT (12/10/15) CHEST X-RAY 1 VIEW FRONTAL (12/10/15) CHEST X-RAY 2VW FRONTAL&LATL (04/30/15) CO/MEMBANE DIFFUSE CAPACITY (12/21/15) COMPLETE CBC AUTOMATED (12/10/15) COMPLETE CBC W/AUTO DIFF WBC (12/10/15) COMPREHEN METABOLIC PANEL (12/10/15) CREATINE MB FRACTION (12/10/15) DRAIN/INJ JOINT/BURSA W/O US (09/21/17) ELECTROCARDIOGRAM TRACING (12/10/15) EMERGENCY DEPT VISIT (06/03/17) EMERGENCY DEPT VISIT (12/10/15) EMERGENCY DEPT VISIT (04/30/15) EVALUATION OF WHEEZING (12/21/15) EXTREMITY STUDY (06/09/15) FIBRIN DEGRADATION QUANT (04/30/15) GLUCOSE BLOOD TEST (12/10/15) GLYCOSYLATED HEMOGLOBIN TEST (01/16/18) HYDRATE IV INFUSION ADD-ON (10/17/15) NEEDLE LOCALIZATION BY XRAY (09/21/17) PROTHROMBIN TIME (10/17/15) PULM FUNCTION TEST BY GAS (12/21/15) ROUTINE VENIPUNCTURE (01/16/18) THER/PROPH/DIAG INJ IV PUSH (06/03/17) THER/PROPH/DIAG INJ SC/IM (04/30/15) THER/PROPH/DIAG IV INF INIT (10/17/15) TX/PRO/DX INJ NEW DRUG ADDON (10/17/15) URINALYSIS AUTO W/SCOPE (12/10/15) X-RAY EXAM HIP UNI 2-3 VIEWS (01/10/17) X-RAY EXAM OF ANKLE (06/03/17) X-RAY EXAM OF FOOT (06/03/17) X-RAY EXAM OF KNEE 3 (06/03/17) X-RAY EXAM OF LOWER LEG (06/03/17) (1) HTN (hypertension) SNOMED Code(s): 98408595 Code(s): I10 - ESSENTIAL (PRIMARY) HYPERTENSION Current Visit: Yes Qualifiers: Hypertension type: essential hypertension Qualified Code(s): I10 - Essential (primary) hypertension (2) COPD (chronic obstructive pulmonary disease) SNOMED Code(s): 66728954 Code(s): J44.9 - CHRONIC OBSTRUCTIVE PULMONARY DISEASE, UNSPECIFIED Current Visit: Yes Qualifiers: COPD type: unspecified COPD Qualified Code(s): J44.9 - Chronic obstructive pulmonary disease, unspecified (3) Hx of deep venous thrombosis SNOMED Code(s): 643609124 Code(s): Z86.718 - PERSONAL HISTORY OF OTHER VENOUS THROMBOSIS AND EMBOLISM Current Visit: Yes (4) Hx pulmonary embolism SNOMED Code(s): 292121730 Code(s): Z86.711 - PERSONAL HISTORY OF PULMONARY EMBOLISM Current Visit: Yes (5) CAD (coronary artery disease) SNOMED Code(s): 04532663 Code(s): I25.10 - ATHSCL HEART DISEASE OF [place] CORONARY ARTERY W/O ANG PCTRS Current Visit: No Qualifiers: Coronary Disease-Associated Artery/Lesion type: [place] artery [place] vs. transplanted heart: [place] heart Associated angina: without angina Qualified Code(s): I25.10 - Atherosclerotic heart disease of [place] coronary artery without angina pectoris (6) GERD (gastroesophageal reflux disease) SNOMED Code(s): 659525290 Code(s): K21.9 - GASTRO-ESOPHAGEAL REFLUX DISEASE WITHOUT ESOPHAGITIS Current Visit: No Qualifiers: Esophagitis presence: without esophagitis Qualified Code(s): K21.9 - Gastro -esophageal reflux disease without esophagitis (7) Type 2 diabetes mellitus SNOMED Code(s): 26355137 Code(s): E11.9 - TYPE 2 DIABETES MELLITUS WITHOUT COMPLICATIONS Current Visit: No Qualifiers: Diabetes mellitus longterm insulin use: without longterm use Problem List Initiated/Reviewed/Updated: Yes My Orders Last 24 Hours: My Active Orders 02/28/18 17:00 Insulin Aspart [NovoLOG] See Protocol SUBCUT TIDAC Plan: This 57 year old male admitted with Dr. Mosher for R anterior ANISHA. Hospitalist service consulted for medical management. 1. S/P R anterior ANISHA: Per Ortho 2. CAD: Stable, continue ASA. Patient should be on a statin, but patient declines this. 3. HTN: Stable, continue Losartan/HCTZ. 4. DM type 2: Well controlled, not receiving Insulin. BS 110-130. Will hold Metformin, but restart upon discharge. Novolog SSI as needed per protocol. VTE prophylaxis: ASA 325 BID.
[2018-03-01 11:46] VITALS: BP 120/61
--- NOTE | 2018-03-01 14:19 | PCM.DCSUM1 ---
Discharge Summary - Hospital Course Brief History: admitted for elective total hip arthroplasty - Discharge Data Discharge Date: 03/01/18 Discharge Disposition: Home, Self-Care 01 Condition: Good - Patient Summary/Data Operative Procedure(s) Performed: right anterior total hip arthroplasty Consults: Consultations 02/28/18 13:14 Consult to Physician [CONS] Routine PT Evaluation and Treatment [CONS] Routine Hospital Course: admitted after surgery. no issues, PT, discharged to home pod #1 with walker - Patient Instructions Diet: Usual Diet as Tolerated Activity: Apply Ice, As Tolerated, Full Weight Bearing Driving: Do Not Drive Showering/Bathing: May Shower Wound/Incision Care: Keep Operative Site/Wound Site Clean and Dry, Do NOT Change Dressing Notify Provider of: Fever, Swelling and Redness, Drainage - Discharge Plan Home Medications: Home Meds Aspirin [Ecotrin] 3 tab PO DAILY 04/30/15 [History] Losartan/Hydrochlorothiazide [Hyzaar 100-25 Tablet] 0.5 tab PO DAILY 11/17/17 [ History] Celecoxib [CeleBREX] 200 mg PO BID 02/23/18 [History] Omeprazole Magnesium [Prilosec Otc] 20 mg PO DAILY 02/23/18 [History] metFORMIN HCl [Metformin HCl] 2 tab PO BID 02/23/18 [History] Patient Handouts: Acetaminophen; Hydrocodone tablets or capsules, Total Hip Replacement, Care After, Aspirin, ASA oral tablets, Docusate capsules Referrals: Kika Chaudhary PA [[facility]] - 03/09/18 10:45 am - Discharge Summary/Plan Comment DC Time >30 min.: No - Patient Data Vitals - Most Recent: Last Vital Signs Temp 36.5 C 03/01/18 11:45 Pulse 83 03/01/18 11:45 Resp 20 03/01/18 11:45 BP 120/61 03/01/18 11:45 Pulse Ox 97 03/01/18 11:45 Weight - Most Recent: 118.388 kg I&O - Last 24 hours: Intake & Output 02/28/18 03/01/18 03/01/18 22:59 06:59 14:59 Intake Total 1000 1523 2080 Output Total 500 2040 1086 Balance 500 -517 994 Lab Results - Last 24 hrs: Laboratory Results - last 24 hr 02/28/18 02/28/1818 Range/Units 14:53 14:53 16:52 WBC 12.24 H (4.0-11.0) K/uL RBC 5.13 (4.50-5.90) M/uL Hgb 15.4 (13.0-17.0) g/dL Hct 44.9 (38.0-50.0) % MCV 87.5 (80.0-98.0) fL MCH 30.0 (27.0-32.0) pg MCHC 34.3 (31.0-37.0) g/dL RDW Std Deviation 42.2 (28.0-62.0) fl RDW Coeff of Lance 13 (11.0-15.0) % Plt Count 137 L (150-400) K/uL MPV 10.70 (7.40-12.00) fL Neut % (Auto) 73.8 (48.0-80.0) % Lymph % (Auto) 21.1 (16.0-40.0) % [place] % (Auto) 3.8 (0.0-15.0) % Eos % (Auto) 1.1 (0.0-7.0) % Baso % (Auto) 0.2 (0.0-1.5) % Neut # (Auto) 9.0 H (1.4-5.7) K/uL Lymph # (Auto) 2.6 H (0.6-2.4) K/uL [place] # (Auto) 0.5 (0.0-0.8) K/uL Eos # (Auto) 0.1 (0.0-0.7) K/uL Baso # (Auto) 0.0 (0.0-0.1) K/uL Nucleated RBC % 0.0 /100WBC Nucleated RBCs # 0 K/uL Sodium 141 (136-148) mmol/L Potassium 4.5 (3.5-5.1) mmol/L Chloride 105 (98-107) mmol/L Carbon Dioxide 29.2 (21.0-32.0) mmol/L BUN 16 (7.0-18.0) mg/dL Creatinine 0.8 (0.8-1.3) mg/dL Est Cr Clr Drug Dosing 96.40 mL/min Estimated GFR (MDRD) > 60.0 ml/min Glucose 126 H (74-106) mg/dL POC Glucose 138 H (60-110) mg/dL Calcium 8.8 (8.5-10.1) mg/dL 03/01/18 03/01/18 03/01/18 Range/Units 04:54 04:54 06:13 WBC 8.44 (4.0-11.0) K/uL RBC 4.62 (4.50-5.90) M/uL Hgb 13.6 (13.0-17.0) g/dL Hct 39.9 (38.0-50.0) % MCV 86.4 (80.0-98.0) fL MCH 29.4 (27.0-32.0) pg MCHC 34.1 (31.0-37.0) g/dL RDW Std Deviation 41.0 (28.0-62.0) fl RDW Coeff of Lance 13 (11.0-15.0) % Plt Count 136 L (150-400) K/uL MPV 11.30 (7.40-12.00) fL Neut % (Auto) 62.0 (48.0-80.0) % Lymph % (Auto) 30.6 (16.0-40.0) % [place] % (Auto) 6.6 (0.0-15.0) % Eos % (Auto) 0.6 (0.0-7.0) % Baso % (Auto) 0.2 (0.0-1.5) % Neut # (Auto) 5.2 (1.4-5.7) K/uL Lymph # (Auto) 2.6 H (0.6-2.4) K/uL [place] # (Auto) 0.6 (0.0-0.8) K/uL Eos # (Auto) 0.1 (0.0-0.7) K/uL Baso # (Auto) 0.0 (0.0-0.1) K/uL Nucleated RBC % 0.0 /100WBC Nucleated RBCs # 0 K/uL Sodium 138 (136-148) mmol/L Potassium 3.9 (3.5-5.1) mmol/L Chloride 103 (98-107) mmol/L Carbon Dioxide 28.2 (21.0-32.0) mmol/L BUN 11 (7.0-18.0) mg/dL Creatinine 0.8 (0.8-1.3) mg/dL Est Cr Clr Drug Dosing 96.40 mL/min Estimated GFR (MDRD) > 60.0 ml/min Glucose 131 H (74-106) mg/dL POC Glucose 118 H (60-110) mg/dL Calcium 8.3 L (8.5-10.1) mg/dL 03/01/18 Range/Units 11:52 WBC (4.0-11.0) K/uL RBC (4.50-5.90) M/uL Hgb (13.0-17.0) g/dL Hct (38.0-50.0) % MCV (80.0-98.0) fL MCH (27.0-32.0) pg MCHC (31.0-37.0) g/dL RDW Std Deviation (28.0-62.0) fl RDW Coeff of Lance (11.0-15.0) % Plt Count (150-400) K/uL MPV (7.40-12.00) fL Neut % (Auto) (48.0-80.0) % Lymph % (Auto) (16.0-40.0) % [place] % (Auto) (0.0-15.0) % Eos % (Auto) (0.0-7.0) % Baso % (Auto) (0.0-1.5) % Neut # (Auto) (1.4-5.7) K/uL Lymph # (Auto) (0.6-2.4) K/uL [place] # (Auto) (0.0-0.8) K/uL Eos # (Auto) (0.0-0.7) K/uL Baso # (Auto) (0.0-0.1) K/uL Nucleated RBC % /100WBC Nucleated RBCs # K/uL Sodium (136-148) mmol/L Potassium (3.5-5.1) mmol/L Chloride (98-107) mmol/L Carbon Dioxide (21.0-32.0) mmol/L BUN (7.0-18.0) mg/dL Creatinine (0.8-1.3) mg/dL Est Cr Clr Drug Dosing mL/min Estimated GFR (MDRD) ml/min Glucose (74-106) mg/dL POC Glucose 181 H (60-110) mg/dL Calcium (8.5-10.1) mg/dL Med Orders - Current: Current Medications Discontinued Medications Hydrocodone Bitart/Acetaminophen ([place] 325-5 Mg) 1 - 2 tab PO Q4H PRN PRN Reason: Pain Last Admin: 03/01/18 13:16 Dose: 2 tab Al Hydroxide/Mg Hydroxide (Mag-Al Plus) 30 ml PO Q4H PRN PRN Reason: indigestion Aspirin (Ecotrin) 325 mg PO BID [facility] Last Admin: 03/01/18 09:07 Dose: 325 mg Bisacodyl (Dulcolax) 10 mg RECTAL DAILY PRN PRN Reason: Constipation Diphenhydramine HCl (Benadryl) 25 - 50 mg PO Q6H PRN PRN Reason: Itching Docusate Sodium (Colace) 100 mg PO BID [facility] Last Admin: 03/01/18 09:07 Dose: 100 mg Fentanyl (Sublimaze) Confirm Administered Dose 100 mcg .ROUTE .STK-MED ONE Stop: 02/28/18 07:20 Fentanyl (Sublimaze) 50 mcg IVPUSH Q5M PRN PRN Reason: Pain (moderate 4-6) Stop: 02/28/18 15:00 HCTZ/Losartan Potassium (Hyzaar 50-12.5 Mg) 0.5 tab PO DAILY [facility] Last Admin: 03/01/18 09:08 Dose: 0.5 tab Clindamycin Phosphate 900 mg/ (Premix) 50 mls @ 100 mls/hr IV ONETIME [facility] Last Admin: 02/28/18 10:05 Dose: 100 mls/hr Lactated Ringer's (Ringers, Lactated) 1,000 mls @ 125 mls/hr IV ASDIRECTED [facility] Last Admin: 02/28/18 16:16 Dose: 125 mls/hr Clindamycin Phosphate 900 mg/ (Premix) 50 mls @ 100 mls/hr IV Q8H [facility] Stop: 03/01/18 03:59 Last Admin: 03/01/18 02:43 Dose: 100 mls/hr Insulin Aspart (Novolog) 0 unit SUBCUT TIDAC [facility]; Protocol Last Admin: 03/01/18 13:13 Dose: Not Given Metformin HCl (Glucophage) 500 mg PO BIDMEALS [facility] Midazolam HCl (Versed 1 Mg/Ml) Confirm Administered Dose 2 mg .ROUTE .STK-MED ONE Stop: 02/28/18 07:20 Midazolam HCl (Versed 1 Mg/Ml) Confirm Administered Dose 2 mg .ROUTE .STK-MED ONE Stop: 02/28/18 07:21 Morphine Sulfate (Morphine) 1 - 3 mg IVPUSH Q3H PRN PRN Reason: Pain Last Admin: 03/01/18 02:52 Dose: 3 mg Nicotine (Habitrol) 7 mg TRDERM DAILY [facility] Last Admin: 03/01/18 09:11 Dose: Not Given Octyl Cyanoacrylate (Dermabond Prineo) 1 applic TOP .STK-MED ONE Stop: 02/28/18 07:35 Omeprazole (Omeprazole) 20 mg PO ACBREAKFAST [facility] Last Admin: 03/01/18 06:52 Dose: 20 mg Ondansetron HCl (Zofran) 4 mg IV Q6HR PRN PRN Reason: NAUSEA/VOMITING Phenylephrine HCl (Kurt-Synephrine) Confirm Administered Dose 10 mg .ROUTE .STK- MED ONE Stop: 02/28/18 12:46 Propofol (Diprivan 20 Ml) Confirm Administered Dose 600 mg .ROUTE .STK-MED ONE Stop: 02/28/18 07:20 Sodium Chloride (Saline Flush) 10 ml FLUSH ASDIRECTED PRN PRN Reason: Keep Vein Open Sodium Chloride (Saline Flush) 2.5 ml FLUSH ASDIRECTED PRN PRN Reason: Keep Vein Open Tranexamic Acid (Cyklokapron) 2,000 mg IV ONETIME ONE Stop: 02/28/18 10:01 Last Admin: 02/28/18 14:08 Dose: Not Given Tranexamic Acid (Cyklokapron) Confirm Administered Dose 2,000 mg .ROUTE .STK- MED ONE Stop: 02/28/18 07:18
== END 2018-03-01 14:00 | disposition home or self-care (01) | DRG 470 ==
LOC: MW.MS 08:37
PROVIDERS: ADMIT Orthopaedic Surgery; ATTEND Orthopaedic Surgery
PROC: 0SR9019 Replacement of Right Hip Joint with Metal Synthetic Substitute, Cemented, Open Approach (ICD-10-PCS; principal; 2018-02-28)
DX: M16.11 Unilateral primary osteoarthritis, right hip (principal); I25.10 Atherosclerotic heart disease of native coronary artery without angina pectoris; I10 Essential (primary) hypertension; Z95.5 Presence of coronary angioplasty implant and graft; F17.210 Nicotine dependence, cigarettes, uncomplicated; I25.2 Old myocardial infarction; Z86.718 Personal history of other venous thrombosis and embolism; Z86.711 Personal history of pulmonary embolism; E11.9 Type 2 diabetes mellitus without complications; J44.9 Chronic obstructive pulmonary disease, unspecified; K21.9 Gastro-esophageal reflux disease without esophagitis
CPT/HCPCS: 36415; 76000; 76000-26; 80048; 82962; 85025; 86850; 86900; 86901; 97116-GP; 97161-GP; 97530-GP; A9270-GY; C1713; C1769; C1776; J2250; J2270; J2370; J2704; J3010; J7120

== ENCOUNTER 2019-09-02 14:04 | Emergency (ER) | payer OTHER ==
[2019-09-02 14:22] VITALS: BP 136/93; PULSE 100
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
[2019-09-02 15:23] LABS: BLOOD UREA NITROGEN,BUN 17 mg/dL (7.0-18.0); CARBON DIOXIDE,CO2 25.3 mmol/L (21.0-32.0); CHLORIDE,CL 97 mmol/L (98-107); GLUCOSE RANDOM 186 mg/dL (74-106); POTASSIUM,K 3.9 mmol/L (3.5-5.1); SODIUM,NA 135 mmol/L (136-148)
--- NOTE | 2019-09-02 15:31 | US ---
Left lower extremity deep venous ultrasound: Duplex and color Doppler imaging was obtained of the left common femoral, superficial femoral, popliteal, posterior tibial and anterior tibial veins. Findings: Lack of compression with off the popliteal vein is seen which is felt compatible with thrombosis. Other veins show normal phasic flow, augmentation and compression. Impression: Findings which are felt compatible with popliteal DVT. Diagnostic code #5 MTDD
== END 2019-09-02 15:35 | disposition home or self-care (01) ==
LOC: MW.ED 14:04
DX: I82.432 Acute embolism and thrombosis of left popliteal vein (principal); I25.2 Old myocardial infarction; I25.10 Atherosclerotic heart disease of native coronary artery without angina pectoris; I10 Essential (primary) hypertension; E11.9 Type 2 diabetes mellitus without complications; J44.9 Chronic obstructive pulmonary disease, unspecified; K21.9 Gastro-esophageal reflux disease without esophagitis; E66.9 Obesity, unspecified; Z68.41 Body mass index [BMI] 40.0-44.9, adult; Z79.82 Long term (current) use of aspirin; Z79.84 Long term (current) use of oral hypoglycemic drugs; Z79.899 Other long term (current) drug therapy; Z88.0 Allergy status to penicillin; Z95.5 Presence of coronary angioplasty implant and graft
CPT/HCPCS: 36415; 80053; 85025; 85610; 93971-26-LT; 93971-LT; 99284-25

== ENCOUNTER 2020-02-22 19:03 | Emergency (ER) | payer BC, OTHER ==
--- NOTE | 2020-02-22 19:26 | EDM.PDOC ---
ED HPI GENERAL MEDICAL PROBLEM - General Chief Complaint: General Stated Complaint: SWOLLEN FACE Time Seen by Provider: 02/22/20 19:11 Source of Information: Reports: Patient History Limitations: Reports: No Limitations - History of Present Illness INITIAL COMMENTS - FREE TEXT/NARRATIVE: HISTORY AND PHYSICAL: History of present illness: Patient is a 59-year-old male who presents to the emergency room with complaints of left sided jaw pain and soft tissue swelling. Pain with clenching his jaw and chewing. Denies any injury or trauma. Patient denies any fever, chills, headache, change in vision, syncope or near syncope. Denies any chest pain, back pain, shortness of breath or cough. Denies any GI or symptoms. Patient has been eating and drinking appropriately. Review of systems: As per history of present illness and below otherwise all systems reviewed and negative. Past medical history: As per history of present illness and as reviewed below otherwise noncontributory. Surgical history: As per history of present illness and as reviewed below otherwise noncontributory. Social history: See social history for further information Family history: As per history of present illness and as reviewed below otherwise noncontributory. Physical exam: General: Well developed and well nourished 59 year old female. Alert and orientated. Nontoxic appearing and in no acute distress. VSS. HEENT: Atraumatic, normocephalic, pupils equal and reactive bilaterally, negative for conjunctival pallor or scleral icterus, mucous membranes moist, multiple dental cares/decay noted, early dental abscess noted to near number 32- 34. No mass or tenderness along the floor of mouth. No temporal pain nor mastoid pain. TMs normal bilaterally, throat clear, neck supple, nontender, trachea midline. No drooling or trismus noted. No TMJ. No meningeal signs. No hot potato voice noted. Lungs: Clear to auscultation, breath sounds equal bilaterally, chest nontender. Heart: S1S2, regular rate and rhythm without overt murmur Abdomen: Soft, nondistended, nontender. Skin: Intact, warm, dry. No lesions or rashes noted. Extremities: Atraumatic, moves all extremities per self without difficulty or deficits. Neurovascular unremarkable. Neuro: Awake, alert, oriented. Cranial nerves II through XII unremarkable. Cerebellum unremarkable. Motor and sensory unremarkable throughout. Exam nonfocal. Notes: States he can't take NSAIDS due to other medication and has been taking Tylenol without relief. We discussed following up with PCP and dentist. Supportive care measures were reviewed and discussed. Voices understanding and is agreeable to plan of care. Denies any further questions or concerns at this time. Diagnostics: None Therapeutics: Dental balls Prescription: Clindamycin Impression: Dental Abscess Plan: 1. Please take the antibiotic as prescribed. 2. Tylenol and/or ibuprofen as needed for pain management. "Tooth Balls" have been given to you; apply along the gumline every 2-3 hours as needed. Do not swallow these; external use only. 3. Follow-up with a dentist for definitive care. Return to the ED as needed and as discussed. Definitive disposition and diagnosis as appropriate pending reevaluation and review of above. face Pain Score (Numeric/FACES): 7 - Related Data Allergies Allergy/AdvReac Type Severity Reaction Status Date / Time Penicillins Allergy Rash Verified 09/02/19 14:15 Home Meds: Home Meds Aspirin [Ecotrin EC] 3 tab PO DAILY 04/30/15 [History] Losartan/Hydrochlorothiazide [Hyzaar 100-25 Tablet] 0.5 tab PO DAILY 11/17/17 [ History] Omeprazole Magnesium [Prilosec Otc] 20 mg PO DAILY 02/23/18 [History] metFORMIN HCl [Metformin HCl] 4 tab PO BID 02/23/18 [History] Acetaminophen/HYDROcodone [[place] 325-5 MG] 1 tab PO Q4H PRN #10 tablet 02/22/20 [Rx] Clindamycin HCl 300 mg PO TID 7 Days #21 capsule 02/22/20 [Rx] Rivaroxaban [Xarelto] 10 mg PO DAILY 02/22/20 [History] Past Medical History - Past Health History Medical/Surgical History: Denies Medical/Surgical History HEENT History: Reports: None Cardiovascular History: Reports: Blood Clots/VTE/DVT, CAD, Hypertension, [place], Stents Other Cardiovascular History: [place] in 2014, denies current chest pain ,SOB, leg swelling- hx of 2 PE in 2009 , took anticoagulants for 6 months, DVT after long flight to [place] Respiratory History: Reports: COPD, PE Gastrointestinal History: Reports: GERD Other Gastrointestinal History: takes OTC prilosec Genitourinary History: Reports: None Musculoskeletal History: Reports: Arthritis, Fracture, Osteoarthritis Other Musculoskeletal History: hx of leona fx arms and legs Neurological History: Reports: Concussion Psychiatric History: Reports: PTSD Endocrine/Metabolic History: Reports: Diabetes, Type II, Obesity/BMI 30+ Hematologic History: Reports: None Immunologic History: Reports: None Oncologic (Cancer) History: Reports: None Dermatologic History: Reports: None - Infectious Disease History Infectious Disease History: Reports: Chicken Pox, Measles, Mumps - Past Surgical History Head Surgeries/Procedures: Reports: None HEENT Surgical History: Reports: Tonsillectomy Cardiovascular Surgical History: Reports: Coronary Artery Stent GI Surgical History: Reports: Hernia, Abdominal, Hernia, Inguinal Male Surgical History: Reports: None Musculoskeletal Surgical History: Reports: Arthroscopic Knee, Carpal Tunnel Other Musculoskeletal Surgeries/Procedures:: hx of left CTR, right ACL (has screws) Social & Family History - Family History Family Medical History: Noncontributory Respiratory: Reports: Other (See Below) Other Respiratory Family Hisory: Black Lung-[place] Endocrine/Metabolic: Reports: Diabetes, type II - Tobacco Use Smoking Status *Q: Current Every Day Smoker Years of Tobacco use: 40 Packs/Tins Daily: 1 - Caffeine Use Caffeine Use: Reports: Coffee - Recreational Drug Use Recreational Drug Use: No - Living Situation & Occupation Living situation: Reports: Occupation: Employed ED ROS GENERAL - Review of Systems Review Of Systems: Comprehensive ROS is negative, except as noted in HPI. ED EXAM, GENERAL - Physical Exam Exam: See Below (See dictation) Course - Vital Signs Last Recorded V/S: Last Vital Signs Temp 96.9 F 02/22/20 19:13 Pulse 92 02/22/20 19:13 Resp 18 02/22/20 19:13 BP 131/71 02/22/20 19:13 Pulse Ox 96 02/22/20 19:13 - Orders/Labs/Meds Meds: Medications Discontinued Medications Generic Name Dose Route Start Last Admin Trade Name Trevor PRN Reason Stop Dose Admin Benzocaine 2 each 02/22/20 19:20 Hurricaine One 20% MUCMEM 02/22/20 19:21 ONETIME ONE Lidocaine HCl 15 ml 02/22/20 19:20 Xylocaine 2% Viscous PO 02/22/20 19:21 ONETIME ONE Departure - Departure Time of Disposition: 19:25 Disposition: Home, Self-Care 01 Clinical Impression: Dental abscess - Discharge Information Prescriptions: Acetaminophen/HYDROcodone [[place] 325-5 MG] 1 tab PO Q4H PRN #10 tablet PRN Reason: Pain Clindamycin HCl 300 mg PO TID 7 Days #21 capsule Instructions: Dental Abscess, [id number] Referrals: Vinnie Cabello MD [Primary Care Provider] - Forms: ED Department Discharge Additional Instructions: The following information is given to patients seen in the emergency department who are being discharged to home. This information is to outline your options for follow-up care. We provide all patients seen in our emergency department with a follow-up referral. The need for follow-up, as well as the timing and circumstances, are variable depending upon the specifics of your emergency department visit. If you don't have a primary care physician on staff, we will provide you with a referral. We always advise you to contact your personal physician following an emergency department visit to inform them of the circumstance of the visit and for follow-up with them and/or the need for any referrals to a consulting specialist. The emergency department will also refer you to a specialist when appropriate. This referral assures that you have the opportunity for follow-up care with a specialist. All of these measure are taken in an effort to provide you with optimal care, which includes your follow-up. Under all circumstances we always encourage you to contact your private physician who remains a resource for coordinating your care. When calling for follow-up care, please make the office aware that this follow-up is from your recent emergency room visit. If for any reason you are refused follow-up, please contact the [facility] Emergency Department at and asked to speak to the emergency department charge nurse. [facility] [address] [place] [address] [id number] [address] 1. Please take the antibiotic as prescribed. 2. Tylenol and/or ibuprofen as needed for pain management. "Tooth Balls" have been given to you; apply along the gumline every 2-3 hours as needed. Do not swallow these; external use only. 3. Follow-up with a dentist for definitive care. Return to the ED as needed and as discussed. Sepsis Event Note - Evaluation Sepsis Screening Result: No Definite Risk - Focused Exam Vital Signs: Vital Signs Temp Pulse Resp BP Pulse Ox 02/22/20 19:13 96.9 F 92 18 131/71 96 Date Exam was Performed: 02/22/20 Time Exam was Performed: 19:29
[2020-02-22] MEDS: Lidocaine 2% Viscous Solution 15 ML Cup PO ONE (19:32)
[2020-02-22] MEDS: Benzocaine 20% Topical Spray UD MUCMEM ONE (19:32)
[2020-02-22 19:37] VITALS: BP 119/71; PULSE 71
== END 2020-02-22 19:40 | disposition home or self-care (01) ==
LOC: MW.ED 19:03
DX: K04.7 Periapical abscess without sinus (principal); I25.10 Atherosclerotic heart disease of native coronary artery without angina pectoris; I10 Essential (primary) hypertension; I25.2 Old myocardial infarction; J44.9 Chronic obstructive pulmonary disease, unspecified; E11.9 Type 2 diabetes mellitus without complications; K21.9 Gastro-esophageal reflux disease without esophagitis; F17.210 Nicotine dependence, cigarettes, uncomplicated; M19.90 Unspecified osteoarthritis, unspecified site; E66.9 Obesity, unspecified; Z68.37 Body mass index [BMI] 37.0-37.9, adult; Z88.0 Allergy status to penicillin; Z79.82 Long term (current) use of aspirin; Z79.01 Long term (current) use of anticoagulants; Z79.84 Long term (current) use of oral hypoglycemic drugs; Z86.711 Personal history of pulmonary embolism; Z79.899 Other long term (current) drug therapy
CPT/HCPCS: 99283; A9270

== ENCOUNTER 2021-10-22 07:19 | Day surgery (SDC) | payer BC, OTHER ==
[~2021-10-22 07:19] MED LIST changes: -Dermabond Prineo 1 Tube TOP ONE; -fentaNYL 100 MCG/2 ML SDV ONE
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
[2021-10-22] MEDS ORDERED: Lactated Ringers 1,000 ML IV SCH ×2 (08:15→09:30)
--- NOTE | 2021-10-22 09:28 | PCM.POSTAN ---
POST ANESTHESIA ASSESSMENT - MENTAL STATUS Mental Status: Alert, Oriented - VITAL SIGNS Vital Signs: Last Vital Signs Temp 99.0 F 10/22/21 09:24 Pulse 84 10/22/21 09:24 Resp 16 10/22/21 09:24 BP 100/72 10/22/21 09:24 Pulse Ox 96 10/22/21 09:24 - RESPIRATORY Respiratory Status: Respiratory Rate WNL, Airway Patent, O2 Saturation Stable - CARDIOVASCULAR CV Status: Pulse Rate WNL, Blood Pressure Stable - GASTROINTESTINAL GI Status: No Symptoms - PAIN Pain Score: 0 - POST OP HYDRATION Hydration Status: Adequate & Stable
--- NOTE | 2021-10-22 09:28 | PCM.OPNOTE ---
- General Post-Op/Procedure Note Date of Surgery/Procedure: 10/22/21 Operative Procedure(s): Colonoscopy with cold ascending colon, transverse colon and rectal polypectomies Pre Op Diagnosis: Rectal bleeding Post-Op Diagnosis: Ascending colon, transverse colon and rectal polyps Anesthesia Technique: MAC (ASA III) Primary Surgeon: Dwayne Toney Fluid Replacement, Intraop: 600 Condition: Good Free Text/Narrative:: DICTATION [id number] CPT CODE 08315
--- NOTE | 2021-10-22 09:34 | PCM48HPAN ---
Post Anesthesia Note - EVALUATION WITHIN 48HRS OF ANESTHETIC Vital Signs in Normal Range: Yes Patient Participated in Evaluation: Yes Respiratory Function Stable: Yes Airway Patent: Yes Cardiovascular Function Stable: Yes Hydration Status Stable: Yes Pain Control Satisfactory: Yes Nausea and Vomiting Control Satisfactory: Yes Mental Status Recovered: Yes Vital Signs: Last Vital Signs Temp 99.0 F 10/22/21 09:24 Pulse 72 10/22/21 09:29 Resp 17 10/22/21 09:29 BP 108/61 10/22/21 09:29 Pulse Ox 98 10/22/21 09:29 - COMMENTS/OBSERVATIONS Free Text/Narrative:: Pt doing well post-op. VSS. No apparent anesthetic complications. Dr. Esteban Pascal
[2021-10-22 10:18] VITALS: BP 106/70; PULSE 79
--- NOTE | 2021-10-22 13:17 | OR ---
SURGEON: Dwayne Toney M.D. DATE OF PROCEDURE: 10/22/2021 OPERATION PERFORMED: Colonoscopy with multiple cold polypectomies from the ascending colon, transverse colon, and rectum. PRIMARY SURGEON: Dwayne Toney M.D. ANESTHESIA: MAC. ASA CLASSIFICATION: III. PREOPERATIVE DIAGNOSIS: Rectal bleeding. POSTOPERATIVE DIAGNOSES: 1. Ascending colon polyp. 2. Transverse colon polyp. 3. Rectal polyp. DESCRIPTION OF PROCEDURE: The patient was taken to the endoscopy room and positioned on the endoscopy table in the left lateral decubitus position. Time-out was called for appropriate identification of the patient and procedure. Monitored anesthesia care was provided. The colonoscope was inserted into the rectum and advanced with minimal difficulty to the cecum. The cecum was identified by internal landmarks and external pressure. The colonoscope was retroflexed to visualize the ascending colon from below and then straightened and slowly withdrawn. The patient did have a polyp in his proximal ascending colon and this was removed with multiple bites of the cold biopsy forceps. A second polyp was encountered in the distal transverse colon and again removed with multiple bites of the cold biopsy forceps. A third polyp that was much smaller in nature was also encountered in the rectum and this was removed again with a cold biopsy forceps. The prep was fair, although there was a moderate amount of mucousy material. No tumors or diverticular changes were noted anywhere in the lower gastrointestinal tract which was well visualized from the cecum all the way to the rectum. No angiodysplastic changes or inflammatory changes were noted. Once the colonoscope was withdrawn to the rectum, it was retroflexed to visualize the anal orifice from above. Again, no tumors or other polyps were encountered and there were no acute hemorrhoidal changes. The colonoscope was then straightened, the rectum aspirated, and the colonoscope removed. The patient tolerated the procedure well and was taken to recovery room in stable condition. TERESA / RAKESH /[id number]
== END 2021-10-22 10:00 | disposition home or self-care (01) ==
LOC: MW.SDS 07:19
PROVIDERS: ATTEND Surgery
DX: D12.2 Benign neoplasm of ascending colon (principal); D12.3 Benign neoplasm of transverse colon; K62.1 Rectal polyp; I10 Essential (primary) hypertension; E11.9 Type 2 diabetes mellitus without complications; M77.10 Lateral epicondylitis, unspecified elbow; M77.00 Medial epicondylitis, unspecified elbow; F17.210 Nicotine dependence, cigarettes, uncomplicated; E66.01 Morbid (severe) obesity due to excess calories; J44.9 Chronic obstructive pulmonary disease, unspecified; I25.10 Atherosclerotic heart disease of native coronary artery without angina pectoris; K21.9 Gastro-esophageal reflux disease without esophagitis; Z88.0 Allergy status to penicillin; Z79.82 Long term (current) use of aspirin; Z79.01 Long term (current) use of anticoagulants; Z79.899 Other long term (current) drug therapy; Z98.890 Other specified postprocedural states; Z68.41 Body mass index [BMI] 40.0-44.9, adult
CPT/HCPCS: 45380; 82947; J2250; J2704; J7120; 00812

== ENCOUNTER 2022-07-24 08:21 | Emergency (ER) | payer OTHER ==
[2022-07-24] MEDS ORDERED: Sodium Chloride 0.9% 1,000 ML IV ONE (08:32)
[2022-07-24 09:08] LABS: CARBON DIOXIDE,CO2 27.7 mmol/L (21.0-32.0); POTASSIUM,K 4.3 mmol/L (3.5-5.1)
[2022-07-24] MEDS ORDERED: Iopamidol 755 Mg/ML 100 ML Bottle IVPUSH ONE (10:30)
[2022-07-24 14:24] VITALS: BP 138/78; PULSE 82
== END 2022-07-24 14:40 | disposition home or self-care (01) ==
LOC: MW.ED 08:21
DX: I21.4 Non-ST elevation (NSTEMI) myocardial infarction (principal); I10 Essential (primary) hypertension; E78.00 Pure hypercholesterolemia, unspecified; K21.9 Gastro-esophageal reflux disease without esophagitis; E11.9 Type 2 diabetes mellitus without complications; E66.9 Obesity, unspecified; Z68.34 Body mass index [BMI] 34.0-34.9, adult; Z79.82 Long term (current) use of aspirin; Z79.899 Other long term (current) drug therapy; Z20.822 Contact with and (suspected) exposure to COVID-19
CPT/HCPCS: 36415; 71275; 74175; 80053; 82947; 83880; 84484; 85025; 85610; 85730; 86850; 86900; 86901; 87635; 93005; 96360; 99285; J7030; Q9967; U0002

== ENCOUNTER 2022-08-11 08:48 | Emergency (ER) | payer OTHER ==
[2022-08-11] MEDS ORDERED: Sodium Chloride 0.9% 2.5 ML Syringe FLUSH PRN (09:09)
[2022-08-11] MEDS ORDERED: Sodium Chloride 0.9% 10 ML Syringe FLUSH PRN (09:09)
[2022-08-11] MEDS ORDERED: Nitroglycerin 0.4 MG Tab.SL SL PRN (09:09)
[2022-08-11 10:22] LABS: CARBON DIOXIDE,CO2 28.8 mmol/L (21.0-32.0); POTASSIUM,K 4.1 mmol/L (3.5-5.1)
[2022-08-11] MEDS ORDERED: Heparin Sodium 5,000 Units/ML Vial IVPUSH ONE (11:00)
[2022-08-11] MEDS ORDERED: Heparin Sodium/0.45% NaCl 500 ML IV SCH (11:00)
[2022-08-11] MEDS ORDERED: Ondansetron 4 MG/2 ML SDV IVPUSH ONE (11:19)
[2022-08-11] MEDS ORDERED: HYDROmorphone 1 MG/ML Syringe IVPUSH ONE (11:19)
[2022-08-11] MEDS ORDERED: Nitroglycerin/D5W 25 MG/250 ML BOTTLE IV SCH (11:30)
[2022-08-11 12:18] VITALS: BP 109/80; PULSE 91
== END 2022-08-11 11:55 ==
LOC: MW.ED 08:48
DX: I21.4 Non-ST elevation (NSTEMI) myocardial infarction (principal); I10 Essential (primary) hypertension; K85.90 Acute pancreatitis without necrosis or infection, unspecified; J44.9 Chronic obstructive pulmonary disease, unspecified; K21.9 Gastro-esophageal reflux disease without esophagitis; E11.9 Type 2 diabetes mellitus without complications; Z79.899 Other long term (current) drug therapy; Z20.822 Contact with and (suspected) exposure to COVID-19
CPT/HCPCS: 36415; 71045; 80053; 83690; 83735; 84484; 85025; 85379; 85610; 85730; 87635; 93005; 96365; 96368; 96375; 96376; 99285; A9270; J1170; J1644; J2405; J3490; U0002

== ENCOUNTER 2022-09-27 09:04 | Emergency (ER) | payer OTHER ==
[2022-09-27] MEDS ORDERED: Sodium Chloride 0.9% 1,000 ML IV SCH (12:15)
[2022-09-27] MEDS ORDERED: Nicotine 21 MG/24 Hr Patch TRDERM ONE (12:26)
[2022-09-27] MEDS ORDERED: Heparin Sodium/0.45% NaCl 500 ML IV STA (12:30)
[2022-09-27] MEDS ORDERED: Heparin Sodium 5,000 Units/ML Vial IVPUSH ONE (12:32)
[2022-09-27 13:19] VITALS: BP 105/69; PULSE 91
[2022-09-27 13:29] LABS: CARBON DIOXIDE,CO2 27.5 mmol/L (21.0-32.0)
== END 2022-09-27 13:58 ==
LOC: MW.ED 09:04
DX: I21.4 Non-ST elevation (NSTEMI) myocardial infarction (principal); I25.10 Atherosclerotic heart disease of native coronary artery without angina pectoris; I10 Essential (primary) hypertension; I25.2 Old myocardial infarction; E11.9 Type 2 diabetes mellitus without complications; E66.9 Obesity, unspecified; Z68.37 Body mass index [BMI] 37.0-37.9, adult; Z88.0 Allergy status to penicillin; Z79.899 Other long term (current) drug therapy; Z79.82 Long term (current) use of aspirin; Z79.84 Long term (current) use of oral hypoglycemic drugs
CPT/HCPCS: 36415; 71045; 80053; 84484; 85025; 85610; 85730; 93005; 96365; 96376; 99285; A9270; J1644; J7030

== ENCOUNTER 2022-10-05 05:52 | Emergency (ER) | payer OTHER ==
[2022-10-05 06:14] VITALS: BP 112/63; PULSE 84
== END 2022-10-05 06:28 | disposition home or self-care (01) ==
LOC: MW.ED 05:52
DX: U07.1 COVID-19 (principal); J44.9 Chronic obstructive pulmonary disease, unspecified; I25.10 Atherosclerotic heart disease of native coronary artery without angina pectoris; I10 Essential (primary) hypertension; I25.2 Old myocardial infarction; E11.9 Type 2 diabetes mellitus without complications; E66.9 Obesity, unspecified; Z68.37 Body mass index [BMI] 37.0-37.9, adult; Z95.5 Presence of coronary angioplasty implant and graft; Z88.0 Allergy status to penicillin; Z79.82 Long term (current) use of aspirin; Z79.01 Long term (current) use of anticoagulants; Z79.899 Other long term (current) drug therapy
CPT/HCPCS: 99283

== ENCOUNTER 2023-01-31 09:05 | Emergency (ER) | payer OTHER ==
[2023-01-31] MEDS ORDERED: Aspirin 81 MG Tab.Chew PO ONE (09:20)
[2023-01-31] MEDS ORDERED: Sodium Chloride 0.9% 500 ML IV ONE ×2 (09:32→12:48)
[2023-01-31 10:15] LABS: CARBON DIOXIDE,CO2 26.6 mmol/L (21.0-32.0)
[2023-01-31] MEDS ORDERED: Potassium Chloride 20 MEQ Tab.ER PO ONE (10:32)
[2023-01-31] MEDS ORDERED: Heparin Sodium 5,000 Units/ML Vial IVPUSH ONE (10:47)
[2023-01-31] MEDS ORDERED: Heparin Sodium/0.45% NaCl 500 ML IV SCH (11:00)
[2023-01-31 12:55] VITALS: PULSE 75
[2023-01-31 14:15] VITALS: BP 97/56
== END 2023-01-31 14:00 ==
LOC: MW.ED 09:05
DX: I21.4 Non-ST elevation (NSTEMI) myocardial infarction (principal); J44.9 Chronic obstructive pulmonary disease, unspecified; I25.10 Atherosclerotic heart disease of native coronary artery without angina pectoris; E11.9 Type 2 diabetes mellitus without complications; I25.2 Old myocardial infarction; E66.9 Obesity, unspecified; Z68.38 Body mass index [BMI] 38.0-38.9, adult; Z95.5 Presence of coronary angioplasty implant and graft; Z88.0 Allergy status to penicillin; Z79.84 Long term (current) use of oral hypoglycemic drugs; Z79.01 Long term (current) use of anticoagulants; Z79.02 Long term (current) use of antithrombotics/antiplatelets; Z72.0 Tobacco use; Z20.822 Contact with and (suspected) exposure to COVID-19
CPT/HCPCS: 36415; 71045; 80053; 83690; 83735; 83880; 84484; 85025; 85379; 85610; 85730; 87635; 93005; 96361; 96365; 96366; 96375; 99285; A9270; J1644; J7030; 93010; 99291; U0002